=== PATIENT | male | born 1975 | race Caucasian/White ===

== ENCOUNTER 2016-12-25 07:35 | Outpatient (CLI) | payer OTHER ==
[2016-12-25 19:47] LABS: CREATINE KINASE MB 1.9 ng/mL (0.6-6.3)
[2016-12-25 19:55] LABS: TROPONIN I < 0.04 ng/mL (<0.49)
[2016-12-25 19:56] LABS: ALBUMIN/GLOBULIN RATIO 1.5 (1.0-2.2); BILIRUBIN,TOTAL 0.9 mg/dL (0.2-1.0); BUN - BLOOD UREA NITROGEN 13 mg/dL (6-20); CALCIUM 9.2 mg/dL (8.5-10.3); CARBON DIOXIDE - CO2 25 mmol/L (21-32); CHLORIDE 105 mmol/L (101-111); CHOL/HDL RATIO 6.6 (<5.0); CHOLESTEROL 224 mg/dL; GFR - MDRD 82 (>89); GLUCOSE 81 mg/dL (70-100); HDL CHOLESTEROL 34 mg/dL; LDL/HDL RATIO 4.7 (<3.6); SODIUM 137 mmol/L (135-145); TOTAL PROTEIN 7.7 g/dL (6.7-8.2); TRIGLYCERIDES 155 mg/dL; VLDL CHOLESTEROL 31 mg/dL
== END 2016-12-25 07:36 | disposition home or self-care (01) ==
LOC: LAB.WCP 07:35
PROVIDERS: ATTEND Family Medicine
DX: R07.89 Other chest pain (principal)
CPT/HCPCS: 36415; 80053; 80061; 82553; 84484

== ENCOUNTER 2019-11-13 15:32 | Outpatient (CLI) | payer OTHER ==
--- NOTE | 2019-11-14 10:40 | XRAY Report ---
Reason: BACK PAIN WITH RADIOCULOPATHY Procedure Date: 11/13/2019 Accession Number: [id number] / [id number] Procedure: XR - Lumbar Spine Complete CPT Code: Final Report FULL RESULT: EXAM: LUMBOSACRAL SPINE RADIOGRAPHY EXAM DATE: 11/13/2019 03:53 PM. CLINICAL HISTORY: Back pain with radiculopathy. COMPARISONS: None. TECHNIQUE: 4 views. FINDINGS: 5 hee-hbj-aoqhydt lumbar vertebral bodies. No vertebral body collapse to indicate fracture. No pathologic subluxation. Mild disk space narrowing L4-L5 and L5-S1. No significant endplate osteophytic spurring. No significant hypertrophic changes at the facet articulations or the sacroiliac joints. IMPRESSION: Mild degenerative changes of the lumbar spine. RADIA
== END 2019-11-13 15:33 | disposition home or self-care (01) ==
LOC: DI 15:32
PROVIDERS: ATTEND Family Medicine
DX: M47.816 Spondylosis without myelopathy or radiculopathy, lumbar region (principal); M47.817 Spondylosis without myelopathy or radiculopathy, lumbosacral region
CPT/HCPCS: 72110

== ENCOUNTER 2019-11-17 10:27 | Outpatient (CLI) | payer OTHER ==
[2019-11-17 14:17] LABS: EOSINOPHILS # (AUTO) 0.1 10^3/uL (0.0-0.7); EOSINOPHILS % (AUTO) 0.9 %; HGB - HEMOGLOBIN 16.2 g/dL (14.0-18.0); LYMPHOCYTES # (AUTO) 1.7 10^3/uL (1.5-3.5); LYMPHOCYTES % (AUTO) 26.1 %; MEAN CORPUSCULAR HEMOGLOBIN 28.4 pg (27.0-31.0); MEAN CORPUSCULAR HGB CONC 33.4 g/dL (32.0-36.0); MEAN CORPUSCULAR VOLUME 85.1 fL (80.0-94.0); MEAN PLATELET VOLUME 10.7 fL (7.4-11.4); MONOCYTES # (AUTO) 0.4 10^3/uL (0.0-1.0); MONOCYTES % (AUTO) 6.9 %; NEUTROPHILS # (AUTO) 4.2 10^3/uL (1.5-6.6); NEUTROPHILS % (AUTO) 65.8 %; PLT - PLATELET COUNT 230 10^3/uL (130-450); RED CELL DISTRIBUTION WIDTH 13.8 % (12.0-15.0); WHITE BLOOD COUNT 6.4 x10^3/uL (4.8-10.8)
[2019-11-17 14:42] LABS: ALBUMIN 4.7 g/dL (3.2-5.5); ALBUMIN/GLOBULIN RATIO 1.5 (1.0-2.2); ALKALINE PHOSPHATASE 74 IU/L (42-121); ALT ALANINE AMINOTRANSFERASE 45 IU/L (10-60); AST ASPARTATE AMINOTRANSFERASE 28 IU/L (10-42); BILIRUBIN,TOTAL 0.7 mg/dL (0.2-1.0); BUN - BLOOD UREA NITROGEN 16 mg/dL (6-20); CALCIUM 9.6 mg/dL (8.5-10.3); CARBON DIOXIDE - CO2 25 mmol/L (21-32); CHLORIDE 108 mmol/L (101-111); CHOL/HDL RATIO 5.4 (<5.0); CHOLESTEROL 223 mg/dL; GLUCOSE 99 mg/dL (70-100); HDL CHOLESTEROL 41 mg/dL; LDL CHOLESTEROL,CALCULATED 159 mg/dL; LDL/HDL RATIO 3.9 (<3.6); SODIUM 139 mmol/L (135-145); TOTAL PROTEIN 7.9 g/dL (6.7-8.2); VLDL CHOLESTEROL 23 mg/dL
== END 2019-11-17 23:59 | disposition home or self-care (01) ==
LOC: LAB.WCP 10:27
PROVIDERS: ATTEND Family Medicine
DX: Z00.00 Encounter for general adult medical examination without abnormal findings (principal)
CPT/HCPCS: 36415; 80053; 80061; 83721; 84443; 85025

== ENCOUNTER 2019-12-23 16:41 | Outpatient (CLI) | payer OTHER | END 2019-12-23 23:59 | disposition home or self-care (01) | LOC: LAB.R 16:41 | PROVIDERS: ATTEND Family Medicine | DX: R30.0 Dysuria (principal) | CPT/HCPCS: 87086 ==

== ENCOUNTER 2020-12-26 04:18 | Outpatient (CLI) | payer OTHER | END 2020-12-26 04:19 | disposition critical access hospital (66) | LOC: EMS 04:18 | DX: M54.5 Low back pain (principal) | CPT/HCPCS: A0425; A0427 ==

== ENCOUNTER 2020-12-26 04:37 | Emergency (ER) | payer OTHER ==
[2020-12-26] MEDS ORDERED: KETOROLAC 30 MG/ML VIAL IVP STA (04:54)
[2020-12-26] MEDS ORDERED: DEXAMETHASONE 10 MG/ML VIAL IVP STA (04:54)
[2020-12-26] MEDS ORDERED: diazePAM INJ 5 MG/ML SYRINGE IVP STA (04:54)
[2020-12-26] MEDS ORDERED: HYDROmorphone 1 MG/ML CARPUJECT IVP STA ×2 (04:54→06:27)
--- NOTE | 2020-12-26 04:54 | ED Physician Documentation ---
PD HPI BACK PAIN - Stated complaint Stated Complaint: BACK PAIN - History obtained from History obtained from: Patient, EMS - History of Present Illness Timing - onset: Today Timing - duration: Hours Timing - details: Abrupt onset (just reaching out for doorknob, abrupt pain in low back with spasms.), Still present Location: Lower, Left Quality: Pain, Spasm, Aching Associated symptoms: No: Fever, Weakness, Numbness, Incontinent of urine Improves with: No: Rest Worsened by: Movement, Twisting Contributing factors: Twisting Similar symptoms before: Diagnosis (disc problems low back with intermittent episodes low back pain.) Review of Systems Constitutional: denies: Fever, Chills Nose: denies: Rhinorrhea / runny nose, Congestion Throat: denies: Sore throat Cardiac: denies: Chest pain / pressure Respiratory: denies: Cough GI: denies: Abdominal Pain, Nausea, Vomiting, Diarrhea Skin: denies: Rash, Lesions Neurologic: denies: Focal weakness, Numbness PD PAST MEDICAL HISTORY - Past Medical History Cardiovascular: None Respiratory: None Neuro: None Endocrine/Autoimmune: None Musculoskeletal: Chronic back pain - Present Medications Home Medications: Ambulatory Orders Medication Instructions Recorded Confirmed Carisoprodol [Soma] 350 mg PO PRN PRN 12/26/20 12/26/20 Carisoprodol [Soma] 350 mg PO TID PRN #20 tablet 12/26/20 Gabapentin [Gralise] 300 mg PO PRN PRN 12/26/20 12/26/20 Gabapentin [Neurontin] 300 mg PO TID 15 Days #45 12/26/20 Ibuprofen [Motrin] 1 tablet PO Q8H PRN 12/26/20 12/26/20 Oxycodone HCl/Acetaminophen 1 each PO Q6H PRN #20 tablet 12/26/20 [Percocet 5-325 mg Tablet] dexAMETHasone [Decadron] 4 mg PO DAILY #7 tablet 12/26/20 - Allergies Allergies/Adverse Reactions: Allergies Allergy/AdvReac Type Severity Reaction Status Date / Time No Known Drug Allergies Allergy Verified 12/26/20 05:14 PD ED PE NORMAL - Vitals Vital signs reviewed: Yes - General General: Alert and oriented X 3, Well developed/nourished, Other (appears in pain with any ROM of the low back. Most comfortable lying on left side. ) - Abdomen Abdomen: Soft, Non tender, Non distended - Rectal Rectal: Deferred - Back Back: No CVA TTP, Other (tender lower lumbar area lateral to midline and toward the SI area. ) - Derm Derm: Normal color, Warm and dry, No rash - Neuro Neuro: Alert and oriented X 3, No motor deficit, No sensory deficit, Other (normal reflexes at knees. ) Results - Vitals Vitals: Vital Signs - 24 hr 12/26/20 12/26/20 04:42 06:21 Temperature 35.8 C L 36.4 C L Heart Rate 78 76 Respiratory 20 16 Rate Blood Pressure 138/90 H 144/60 H O2 Saturation 95 95 Oxygen O2 Source Room air PD MEDICAL DECISION MAKING - ED course Complexity details: re-evaluated patient (improved with meds given here. ), considered differential (prior back pains/disc problems. No impactful new injury. No red flags to suggest need for testing. ), d/w patient Departure - Departure Disposition: 01 Home, Self Care Clinical Impression: Acute lumbar back pain Qualifiers: Back pain laterality: unspecified Sciatica presence: without sciatica Qualified Code(s): M54.5 - Low back pain Condition: Stable Record reviewed to determine appropriate education?: Yes Instructions: ED Spasm Back No Trauma Prescriptions: dexAMETHasone [Decadron] 4 mg PO DAILY #7 tablet Gabapentin [Neurontin] 300 mg PO TID 15 Days #45 Oxycodone HCl/Acetaminophen [Percocet 5-325 mg Tablet] 1 each PO Q6H PRN #20 tablet PRN Reason: pain Carisoprodol [Soma] 350 mg PO TID PRN #20 tablet PRN Reason: Spasms Comments: Heat and gentle stretching for the low back. Physical treatments such as massage and chiropractic are good for back pain as well. Continue usual medications of the gabapentin and Soma and I wrote prescriptions for both of these for a couple of weeks until you can get refills from your primary care. Also add Decadron steroid anti-inflammatory daily for a week. To these add Tylenol or oxycodone as needed for worse pain. Recheck if not improving well over the next several days. My narcotic instructions I am prescribing a short course of narcotic pain medication for you. These are potentially dangerous and addictive medications that should be used carefully. These medications may constipate you. Take an bvam-fyk-ajobtwz stool softener such as docusate twice daily with plenty of water while taking these medications. If you go 24 hours without a bowel movement, take [id number] MiraLAX, per package instructions. Do not drink or drive while taking these medications. If you received narcotic or sedating medications while in the emergency department do not drive for 24 hours. Store this medication in a safe, secure place and out of reach of children. It is a violation of federal law to give or sell this medication to another person or to use in a manner other than prescribed. The ED will not refill narcotic prescriptions, including prescriptions lost or stolen. You can dispose of unwanted medications at the [facility]'s office or at several pharmacies such as [facility]. Discharge Date/Time: 12/26/20 06:55
[2020-12-26] MEDS ORDERED: SODIUM CHLORIDE 0.9% 1,000 ML IV STA (05:03)
[2020-12-26 06:23] VITALS: BP 144/60
== END 2020-12-26 06:55 | disposition home or self-care (01) ==
LOC: EDUNIT# → ED 04:37
DX: M54.5 Low back pain (principal)
CPT/HCPCS: 96361; 96374; 96375; 99283; 99284; J1170

== ENCOUNTER 2021-02-09 08:00 | Outpatient (CLI) | payer OTHER ==
[2021-02-09 12:30] LABS: EOSINOPHILS # (AUTO) 0.1 10^3/uL (0.0-0.7); EOSINOPHILS % (AUTO) 1.3 %; HGB - HEMOGLOBIN 15.2 g/dL (14.0-18.0); LYMPHOCYTES # (AUTO) 1.5 10^3/uL (1.5-3.5); LYMPHOCYTES % (AUTO) 28.2 %; MEAN CORPUSCULAR HEMOGLOBIN 28.6 pg (27.0-31.0); MEAN CORPUSCULAR HGB CONC 33.8 g/dL (32.0-36.0); MEAN CORPUSCULAR VOLUME 84.6 fL (80.0-94.0); MEAN PLATELET VOLUME 11.1 fL (7.4-11.4); MONOCYTES # (AUTO) 0.4 10^3/uL (0.0-1.0); MONOCYTES % (AUTO) 7.6 %; NEUTROPHILS # (AUTO) 3.4 10^3/uL (1.5-6.6); NEUTROPHILS % (AUTO) 62.7 %; PLT - PLATELET COUNT 221 10^3/uL (130-450); RED BLOOD COUNT 5.32 10^6/uL (4.70-6.10); RED CELL DISTRIBUTION WIDTH 13.6 % (12.0-15.0); WHITE BLOOD COUNT 5.4 x10^3/uL (4.8-10.8)
[2021-02-09 12:49] LABS: ALBUMIN 4.4 g/dL (3.2-5.5); ALBUMIN/GLOBULIN RATIO 1.4 (1.0-2.2); ALKALINE PHOSPHATASE 68 IU/L (42-121); ALT ALANINE AMINOTRANSFERASE 29 IU/L (10-60); AST ASPARTATE AMINOTRANSFERASE 19 IU/L (10-42); BILIRUBIN,TOTAL 0.8 mg/dL (0.2-1.0); BUN - BLOOD UREA NITROGEN 15 mg/dL (6-20); CALCIUM 9.2 mg/dL (8.5-10.3); CARBON DIOXIDE - CO2 23 mmol/L (21-32); CHLORIDE 105 mmol/L (101-111); CHOL/HDL RATIO 6.3 (<5.0); CHOLESTEROL 240 mg/dL; GFR - MDRD 80 (>89); GLUCOSE 117 mg/dL (70-100); HDL CHOLESTEROL 38 mg/dL; LDL CHOLESTEROL,CALCULATED 180 mg/dL; LDL/HDL RATIO 4.7 (<3.6); POTASSIUM 4.1 mmol/L (3.5-5.0); SODIUM 136 mmol/L (135-145); TOTAL PROTEIN 7.5 g/dL (6.7-8.2); TRIGLYCERIDES 111 mg/dL; VLDL CHOLESTEROL 22 mg/dL
[2021-02-09 12:55] LABS: THYROID STIMULATING HORMONE 6.31 uIU/mL (0.34-5.60)
[2021-02-09 14:36] LABS: FREE T4 (FREE THYROXINE) 0.73 ng/dL (0.58-1.64)
== END 2021-02-09 23:59 | disposition home or self-care (01) ==
LOC: LAB.WCP 08:00
PROVIDERS: ATTEND Family Medicine
DX: E78.5 Hyperlipidemia, unspecified (principal); R03.0 Elevated blood-pressure reading, without diagnosis of hypertension; Z12.5 Encounter for screening for malignant neoplasm of prostate
CPT/HCPCS: 36415; 80053; 80061; 83721; 84153; 84439; 84443; 85025